=== PATIENT | female | born 1975 | race Caucasian/White ===

== ENCOUNTER 2020-10-27 20:01 | Emergency (ER) | payer OTHER ==
[~2020-10-27] VITALS: Ht 172.7 cm; Wt 122.5 kg
[2020-10-27] MEDS ORDERED: DOXYCYCLINE100 M3 PO (21:00)
[2020-10-27] MEDS ORDERED: IBUPROFEN600 MG PO (21:00)
== END 2020-10-27 21:30 | disposition home or self-care (01) ==
LOC: ED 20:01
DX: S10.96XA Insect bite of unspecified part of neck, initial encounter (principal); B96.89 Other specified bacterial agents as the cause of diseases classified elsewhere; W57.XXXA Bitten or stung by nonvenomous insect and other nonvenomous arthropods, initial encounter; Y93.89 Activity, other specified; Y92.89 Other specified places as the place of occurrence of the external cause; Y99.8 Other external cause status

== ENCOUNTER 2020-12-29 18:22 | Emergency (ER) | payer OTHER ==
[~2020-12-29] VITALS: Ht 175.2 cm; Wt 136.1 kg
[~2020-12-29 18:22] MED LIST: DOXYCYCLINE100 M3 PO; IBUPROFEN600 MG PO
[2020-12-29] MEDS ORDERED: NAPROSYN500 MG PO (19:57)
== END 2020-12-29 20:00 | disposition home or self-care (01) ==
LOC: ED 18:22
DX: S90.32XA Contusion of left foot, initial encounter (principal); S80.01XA Contusion of right knee, initial encounter; E66.9 Obesity, unspecified; Z79.2 Long term (current) use of antibiotics; Z79.899 Other long term (current) drug therapy; W10.8XXA Fall (on) (from) other stairs and steps, initial encounter; Y93.89 Activity, other specified; Y92.89 Other specified places as the place of occurrence of the external cause; Y99.8 Other external cause status